=== PATIENT | female | born 1940 | race Caucasian/White ===

== ENCOUNTER 2025-03-05 11:04 | Inpatient (IN) | payer MEDICARE ==
[2025-03-05] MEDS ORDERED: dilTIAZem 25 MG/5 ML VIAL ONE (11:15)
[2025-03-05] MEDS ORDERED: Metoprolol Tartrate 5 MG (5 mL) VIAL ONE (11:19)
[2025-03-05] MEDS ORDERED: NOREPINEPHRINE 8 MG/250 ML-D5W 250 ML ONE (11:54)
[2025-03-05 12:11] LABS: Actual Bicarbonate (HCO3v) 23.6 mEq/L (22-28); Base Excess -2.8 mEq/L (-2.0 to +3.0); Calcium, Ionized (venous) 0.90 mmol/L (1.16-1.32); Chloride (VBG) 97 mmol/L (98-106); Hematocrit-VBG 36 % (36.0-52.0); Hemoglobin (Hb) 12.2 g/dL (11.7-17.4); Potassium (VBG) 5.10 mmol/L (3.70-5.30); Sodium 135 mmol/L (133-146)
[2025-03-05 12:26] LABS: INR-International Normal Ratio 3.0; PTT 56.3 sec (22.9-36.1); Prothrombin Time 31.2 sec (12.0-14.7)
[2025-03-05 12:27] LABS: D-Dimer Test 2.3 mcg/mL (0.27-0.43)
[2025-03-05 12:41] LABS: ALT (SGPT) 124 U/L (F: <34 M: <45); AST (SGOT) 246 U/L (11-34); Albumin 3.3 g/dL (3.1-4.5); Alkaline Phosphatase 95 U/L (40-110); Anion Gap 20 mmol/L (10-20); BUN (Urea Nitrogen) 62 mg/dL (8.4-25.7); Bilirubin, Total 1.1 mg/dL (0.3-1.2); Calcium 7.6 mg/dL (7.8-10.44); Carbon Dioxide 22 mmol/L (23-31); Chloride 98 mmol/L (98-107); Globulin 3.9 g/dL (2.4-3.5); Glucose 301 mg/dL (83-110); Magnesium 0.8 mg/dL (1.6-2.6); Potassium 5.1 mmol/L (3.5-5.1); Sodium 135 mmol/L (136-145)
[2025-03-05] MEDS ORDERED: Digoxin 0.5 MG/2 ML AMP ONE (12:52)
[2025-03-05 12:55] LABS: #Basophils Less than 0.03 10x3/uL (0.0-0.2); #Eosinophils Less than 0.03 10x3/uL (0.0-0.7); #Monocytes 0.72 10x3/uL (0.11-0.59); #Neutrophils 8.01 10x3/uL (1.40-6.50); %Basophils 0.2 % (0.0-1.0); %Eosinophils 0.0 % (0.0-10.0); %Lymphocytes 5.2 % (21.0-51.0); %Monocytes 7.7 % (0.0-10.0); %Neutrophils 86.0 % (42.0-75.0); Hematocrit 36.4 % (36.0-52.0); Hemoglobin 11.0 g/dL (12.0-18.0); Mean Corpuscular Hemoglobin 29.3 pg (27.0-31.0); Mean Corpuscular Volume 97.1 fL (78.0-98.0); Platelet Count 206 10x3/uL (130-400); Red Blood Cell (RBC) Count 3.75 mill/uL (4.20-6.10); White Blood Cell (WBC) Count 9.31 10x3/uL (4.8-10.8)
[2025-03-05] MEDS ORDERED: Magnesium 2 GM/50 ML BAG (IN WATER) ONE (13:09)
[2025-03-05] MEDS ORDERED: Cefepime 2 GM VIAL ONE (13:09)
[2025-03-05] MEDS ORDERED: NOREPINEPHRINE 8 MG/250 ML-D5W 250 ML IVPB PRN (13:43)
[2025-03-05] MEDS ORDERED: Dextrose 50% Abboject 50 ML SYRINGE SLOW IVP PRN (13:43)
[2025-03-05] MEDS ORDERED: Ondansetron PF 4 MG/2 ML Vial IVP PRN ×2 (13:43)
[2025-03-05] MEDS ORDERED: Acetaminophen 325 MG TAB PO PRN (13:43)
[2025-03-05] MEDS ORDERED: Glucagon 1 MG/ML KIT IM PRN (13:43)
[2025-03-05] MEDS ORDERED: Furosemide 20 MG (2 mL) VIAL ONE (14:22)
[2025-03-05] MEDS: Vancomycin 1.25 GM / NS 250 ML VIAL-2-BAG IVPB SCH (16:15)
[2025-03-05] MEDS: Furosemide 40 MG (4 mL) VIAL SLOW IVP SCH (16:15)
[2025-03-05 16:53] LABS: Bacteria/HPF 3+ HPF (None Seen); CAUTI Indications for Culture Alt mental st,lethar; Glucose, Urine (Dipstick) Normal (Negative); Leukocyte 500 Leu/uL (Negative); Protein, Urine (Dipstick) 70 mg/dL (Neg-Trace); Specific Gravity, Urine 1.013 (1.002-1.036); WBC/HPF Greater than 50 HPF (0-3)
[2025-03-05 16:57] LABS: Urine Culture Reflex Yes Yes
[2025-03-05 17:39] VITALS: BMI 23.0
[2025-03-05 17:59] LABS: Magnesium 1.5 mg/dL (1.6-2.6)
[2025-03-05] MEDS: Azithromycin 500 MG in Sodium Chloride 0.9% 250 ML 250 ML IVPB SCH (17:59)
[2025-03-05] MEDS: Magnesium 2 GM/50 ML(in water) 2 GM in Premix 1 BAG IVPB SCH (20:23)
[2025-03-05] MEDS: cefTRIAXone\\ROCEPHIN 2 GM in Sodium Chloride 0.9% 100 ML IVPB SCH (22:14)
[2025-03-06 06:01] LABS: ALT (SGPT) 151 U/L (F: <34 M: <45); AST (SGOT) 197 U/L (11-34); Albumin 2.6 g/dL (3.1-4.5); Alkaline Phosphatase 83 U/L (40-110); Anion Gap 17 mmol/L (10-20); BUN (Urea Nitrogen) 61 mg/dL (8.4-25.7); Bilirubin, Total 0.5 mg/dL (0.3-1.2); Calcium 7.6 mg/dL (7.8-10.44); Carbon Dioxide 25 mmol/L (23-31); Chloride 103 mmol/L (98-107); Globulin 3.3 g/dL (2.4-3.5); Glucose 127 mg/dL (83-110); Magnesium 1.9 mg/dL (1.6-2.6); Potassium 3.8 mmol/L (3.5-5.1); Sodium 141 mmol/L (136-145)
[2025-03-06 07:49] LABS: #Basophils 0.04 10x3/uL (0.0-0.2); #Eosinophils 0.04 10x3/uL (0.0-0.7); #Monocytes 0.79 10x3/uL (0.11-0.59); #Neutrophils 5.26 10x3/uL (1.40-6.50); %Basophils 0.6 % (0.0-1.0); %Eosinophils 0.6 % (0.0-10.0); %Lymphocytes 11.3 % (21.0-51.0); %Monocytes 11.1 % (0.0-10.0); %Neutrophils 74.1 % (42.0-75.0); Hematocrit 42.8 % (36.0-52.0); Hemoglobin 13.3 g/dL (12.0-18.0); Mean Corpuscular Hemoglobin 29.5 pg (27.0-31.0); Mean Corpuscular Volume 94.9 fL (78.0-98.0); Platelet Count 119 10x3/uL (130-400); Red Blood Cell (RBC) Count 4.51 mill/uL (4.20-6.10); White Blood Cell (WBC) Count 7.09 10x3/uL (4.8-10.8)
[2025-03-06] MEDS: Magnesium 2 GM/50 ML(in water) 2 GM in Premix 1 BAG IVPB SCH (09:22)
[2025-03-06] MEDS: Enoxaparin 60 MG (0.6 mL) SYRINGE SC SCH (09:22)
[2025-03-06] MEDS: Digoxin 0.5 MG/2 ML AMP SLOW IVP SCH (09:24)
[2025-03-06 09:32] LABS: Burr Cells MODERATE= 6-15 cells HPF (0-1); Platelet Adequacy Comment Platelets Decreased; Poikilocytosis MODERATE=16-30 cells HPF (0-5); Polychromasia SLIGHT = 2-3 cells HPF (0-2)
[2025-03-06] MEDS: Furosemide 40 MG (4 mL) VIAL SLOW IVP SCH (12:06)
[2025-03-07 06:05] LABS: #Basophils 0.05 10x3/uL (0.0-0.2); #Eosinophils 0.04 10x3/uL (0.0-0.7); #Monocytes 1.13 10x3/uL (0.11-0.59); #Neutrophils 7.69 10x3/uL (1.40-6.50); %Basophils 0.5 % (0.0-1.0); %Eosinophils 0.4 % (0.0-10.0); %Lymphocytes 7.0 % (21.0-51.0); %Monocytes 11.6 % (0.0-10.0); %Neutrophils 79.0 % (42.0-75.0); Hematocrit 35.6 % (36.0-47.0); Hemoglobin 10.7 g/dL (12.0-16.0); Mean Corpuscular Hemoglobin 29.2 pg (27.0-31.0); Mean Corpuscular Volume 97.3 fL (78.0-98.0); Platelet Count 194 10x3/uL (130-400); Red Blood Cell (RBC) Count 3.66 mill/uL (4.20-5.40); White Blood Cell (WBC) Count 9.74 10x3/uL (4.8-10.8)
[2025-03-07 06:35] LABS: ALT (SGPT) 119 U/L (Less than 34); AST (SGOT) 98 U/L (11-34); Albumin 2.6 g/dL (3.1-4.5); Alkaline Phosphatase 90 U/L (40-110); Anion Gap 14 mmol/L (10-20); BUN (Urea Nitrogen) 47 mg/dL (9.8-20.1); Bilirubin, Total 0.5 mg/dL (0.3-1.2); Calc. Creatinine Clearance 29 mL/min (70-130); Calcium 8.2 mg/dL (7.8-10.44); Carbon Dioxide 30 mmol/L (23-31); Chloride 101 mmol/L (98-107); Digoxin 1.41 ng/mL (0.8-2.0); Globulin 3.2 g/dL (2.4-3.5); Glucose 125 mg/dL (83-110); Potassium 3.6 mmol/L (3.5-5.1); Sodium 141 mmol/L (136-145)
[2025-03-07] MEDS ORDERED: Guaifenesin DM 100-10/5 ML UDCUP PO PRN (11:14)
[2025-03-07] MEDS ORDERED: Sodium Chloride 0.65% Nasal 44 ML BOT EA NARE PRN (11:16)
[2025-03-07] MEDS: Pantoprazole 40 MG DR.TAB PO SCH (15:29)
[2025-03-08 05:00] LABS: #Basophils 0.06 10x3/uL (0.0-0.2); #Eosinophils 0.06 10x3/uL (0.0-0.7); #Monocytes 1.16 10x3/uL (0.11-0.59); #Neutrophils 6.26 10x3/uL (1.40-6.50); %Basophils 0.7 % (0.0-1.0); %Eosinophils 0.7 % (0.0-10.0); %Lymphocytes 10.0 % (21.0-51.0); %Monocytes 13.2 % (0.0-10.0); %Neutrophils 71.2 % (42.0-75.0); Hematocrit 35.7 % (36.0-47.0); Hemoglobin 10.4 g/dL (12.0-16.0); Mean Corpuscular Hemoglobin 29.0 pg (27.0-31.0); Mean Corpuscular Volume 99.4 fL (78.0-98.0); Platelet Count 216 10x3/uL (130-400); Red Blood Cell (RBC) Count 3.59 mill/uL (4.20-5.40); White Blood Cell (WBC) Count 8.79 10x3/uL (4.8-10.8)
[2025-03-08 05:22] LABS: ALT (SGPT) 98 U/L (Less than 34); AST (SGOT) 76 U/L (11-34); Albumin 2.6 g/dL (3.1-4.5); Alkaline Phosphatase 88 U/L (40-110); Anion Gap 15 mmol/L (10-20); BUN (Urea Nitrogen) 34 mg/dL (9.8-20.1); Bilirubin, Total 0.5 mg/dL (0.3-1.2); Calc. Creatinine Clearance 39 mL/min (70-130); Calcium 8.6 mg/dL (7.8-10.44); Carbon Dioxide 29 mmol/L (23-31); Chloride 101 mmol/L (98-107); Globulin 3.2 g/dL (2.4-3.5); Glucose 136 mg/dL (83-110); Potassium 3.7 mmol/L (3.5-5.1); Sodium 141 mmol/L (136-145)
[2025-03-08] MEDS: Pantoprazole 40 MG DR.TAB PO SCH (09:38)
[2025-03-08] MEDS: Cyanocobalamin (Vitamin B-12) 1,000 MCG TAB PO SCH (09:38)
[2025-03-08] MEDS ORDERED: Albuterol 200 PUFF (6.7GM INHALER) INH PRN (13:57)
[2025-03-08] MEDS ORDERED: Albuterol 2.5 MG (3 mL) NEB NEB PRN (13:57)
[2025-03-08] MEDS ORDERED: hydrALAZINE 20 MG/ML VIAL SLOW IVP PRN (20:54)
[2025-03-08] MEDS ORDERED: Enoxaparin 60 MG (0.6 mL) SYRINGE SC SCH (21:00)
[2025-03-09 05:05] LABS: Hematocrit 37.3 % (36.0-47.0); Hemoglobin 10.9 g/dL (12.0-16.0); INR-International Normal Ratio 2.0; Mean Corpuscular Hemoglobin 29.3 pg (27.0-31.0); Mean Corpuscular Volume 100.3 fL (78.0-98.0); Platelet Count 235 10x3/uL (130-400); Prothrombin Time 23.1 sec (12.0-14.7); Red Blood Cell (RBC) Count 3.72 mill/uL (4.20-5.40); White Blood Cell (WBC) Count 9.05 10x3/uL (4.8-10.8)
[2025-03-09 05:06] LABS: PTT 46.0 sec (22.9-36.1)
[2025-03-09 05:16] LABS: ALT (SGPT) 78 U/L (Less than 34); AST (SGOT) 60 U/L (11-34); Albumin 2.6 g/dL (3.1-4.5); Alkaline Phosphatase 85 U/L (40-110); Anion Gap 16 mmol/L (10-20); BUN (Urea Nitrogen) 27 mg/dL (9.8-20.1); Bilirubin, Total 0.8 mg/dL (0.3-1.2); Calc. Creatinine Clearance 45 mL/min (70-130); Calcium 8.9 mg/dL (7.8-10.44); Carbon Dioxide 32 mmol/L (23-31); Chloride 99 mmol/L (98-107); Globulin 3.3 g/dL (2.4-3.5); Glucose 120 mg/dL (83-110); Potassium 3.9 mmol/L (3.5-5.1); Sodium 143 mmol/L (136-145)
[2025-03-09 06:54] LABS: Anisocytosis SLIGHT = 6-15 cells HPF (0-5); Macrocytosis SLIGHT = 6-15 cells HPF (0-5); Nucleated RBC (Manual Ct) 1 % (0); Platelet Adequacy Comment Platelets Normal; Polychromasia SLIGHT = 2-3 cells HPF (0-2); Smudge Cells 4.0 %
[2025-03-09] MEDS: Pantoprazole 40 MG DR.TAB PO SCH (08:44)
[2025-03-09] MEDS: Calcium Carbonate 600 MG + Vit D TAB PO SCH (08:44)
[2025-03-09] MEDS: Multivit, Therapeutic 1 TAB PO SCH (08:45)
[2025-03-09] MEDS: Losartan 25 MG TAB PO SCH (08:52)
[2025-03-09] MEDS: Carvedilol 6.25 MG TAB PO SCH ×2 (08:52→17:16)
[2025-03-09] MEDS: Furosemide 40 MG (4 mL) VIAL SLOW IVP SCH (11:42)
[2025-03-09] MEDS: Spironolactone 25 MG TAB PO SCH (11:43)
[2025-03-09] MEDS: Furosemide 20 MG (2 mL) VIAL SLOW IVP SCH (14:45)
[2025-03-10 05:02] LABS: INR-International Normal Ratio 2.2; Prothrombin Time 24.3 sec (12.0-14.7)
[2025-03-10 05:05] LABS: ALT (SGPT) 62 U/L (Less than 34); AST (SGOT) 45 U/L (11-34); Albumin 2.6 g/dL (3.1-4.5); Alkaline Phosphatase 83 U/L (40-110); Anion Gap 14 mmol/L (10-20); BUN (Urea Nitrogen) 32 mg/dL (9.8-20.1); Bilirubin, Total 0.6 mg/dL (0.3-1.2); Calc. Creatinine Clearance 41 mL/min (70-130); Calcium 9.3 mg/dL (7.8-10.44); Carbon Dioxide 35 mmol/L (23-31); Chloride 97 mmol/L (98-107); Globulin 3.5 g/dL (2.4-3.5); Glucose 139 mg/dL (83-110); Potassium 3.9 mmol/L (3.5-5.1); Sodium 142 mmol/L (136-145)
[2025-03-10 05:08] LABS: Hematocrit 41.4 % (36.0-47.0); Hemoglobin 12.3 g/dL (12.0-16.0); Mean Corpuscular Hemoglobin 29.1 pg (27.0-31.0); Mean Corpuscular Volume 97.9 fL (78.0-98.0); Platelet Count 230 10x3/uL (130-400); Red Blood Cell (RBC) Count 4.23 mill/uL (4.20-5.40); White Blood Cell (WBC) Count 9.51 10x3/uL (4.8-10.8)
[2025-03-10 05:13] LABS: Digoxin 1.53 ng/mL (0.8-2.0)
[2025-03-10 06:41] LABS: Anisocytosis SLIGHT = 6-15 cells HPF (0-5); Macrocytosis SLIGHT = 6-15 cells HPF (0-5); Ovalocytes SLIGHT = 2-5 cells HPF (0-1); Platelet Adequacy Comment Platelets Normal; Polychromasia SLIGHT = 2-3 cells HPF (0-2); Smudge Cells 5.9 %
[2025-03-10] MEDS: Spironolactone 25 MG TAB PO SCH (08:37)
[2025-03-11 04:49] LABS: INR-International Normal Ratio 2.6; Prothrombin Time 28.2 sec (12.0-14.7)
[2025-03-11 04:51] LABS: ALT (SGPT) 45 U/L (Less than 34); AST (SGOT) 36 U/L (11-34); Albumin 2.5 g/dL (3.1-4.5); Alkaline Phosphatase 75 U/L (40-110); Anion Gap 15 mmol/L (10-20); BUN (Urea Nitrogen) 36 mg/dL (9.8-20.1); Bilirubin, Total 0.5 mg/dL (0.3-1.2); Calc. Creatinine Clearance 35 mL/min (70-130); Calcium 8.7 mg/dL (7.8-10.44); Carbon Dioxide 34 mmol/L (23-31); Chloride 96 mmol/L (98-107); Globulin 3.2 g/dL (2.4-3.5); Glucose 114 mg/dL (83-110); Magnesium 1.5 mg/dL (1.6-2.6); Potassium 3.8 mmol/L (3.5-5.1); Sodium 141 mmol/L (136-145)
[2025-03-11 05:07] LABS: Hematocrit 38.0 % (36.0-47.0); Hemoglobin 11.4 g/dL (12.0-16.0); Mean Corpuscular Hemoglobin 29.3 pg (27.0-31.0); Mean Corpuscular Volume 97.7 fL (78.0-98.0); Platelet Count 201 10x3/uL (130-400); Red Blood Cell (RBC) Count 3.89 mill/uL (4.20-5.40); White Blood Cell (WBC) Count 9.36 10x3/uL (4.8-10.8)
[2025-03-11] MEDS: Magnesium 2 GM/50 ML(in water) 2 GM in Premix 1 BAG IVPB SCH (05:08)
[2025-03-11 06:37] LABS: Anisocytosis SLIGHT = 6-15 cells HPF (0-5); Macrocytosis SLIGHT = 6-15 cells HPF (0-5); Ovalocytes SLIGHT = 2-5 cells HPF (0-1); Platelet Adequacy Comment Platelets Normal; Poikilocytosis SLIGHT = 6-15 cells HPF (0-5); Polychromasia SLIGHT = 2-3 cells HPF (0-2); Smudge Cells 12.6 %
[2025-03-11] MEDS ORDERED: HYDROcodone/Acetaminophen 5/325 mg Tablet PO PRN (10:50)
[2025-03-12 06:06] LABS: INR-International Normal Ratio 2.6; Prothrombin Time 28.1 sec (12.0-14.7)
[2025-03-12 06:09] LABS: Hematocrit 38.5 % (36.0-47.0); Hemoglobin 11.3 g/dL (12.0-16.0); Mean Corpuscular Hemoglobin 29.5 pg (27.0-31.0); Mean Corpuscular Volume 100.5 fL (78.0-98.0); Platelet Count 212 10x3/uL (130-400); Red Blood Cell (RBC) Count 3.83 mill/uL (4.20-5.40); White Blood Cell (WBC) Count 8.83 10x3/uL (4.8-10.8)
[2025-03-12 06:25] LABS: ALT (SGPT) 38 U/L (Less than 34); AST (SGOT) 41 U/L (11-34); Albumin 2.5 g/dL (3.1-4.5); Alkaline Phosphatase 74 U/L (40-110); Anion Gap 14 mmol/L (10-20); BUN (Urea Nitrogen) 32 mg/dL (9.8-20.1); Bilirubin, Total 0.7 mg/dL (0.3-1.2); Calc. Creatinine Clearance 36 mL/min (70-130); Calcium 8.8 mg/dL (7.8-10.44); Carbon Dioxide 36 mmol/L (23-31); Chloride 96 mmol/L (98-107); Globulin 3.1 g/dL (2.4-3.5); Glucose 120 mg/dL (83-110); Potassium 4.2 mmol/L (3.5-5.1); Sodium 142 mmol/L (136-145)
[2025-03-12 07:18] LABS: Anisocytosis SLIGHT = 6-15 cells HPF (0-5); Macrocytosis SLIGHT = 6-15 cells HPF (0-5); Platelet Adequacy Comment Platelets Normal; Polychromasia SLIGHT = 2-3 cells HPF (0-2); Smudge Cells 5.0 %
[2025-03-12] MEDS: Furosemide 40 MG TAB PO SCH (09:33)
[2025-03-12] MEDS ORDERED: Furosemide 40 MG (4 mL) VIAL SLOW IVP SCH (12:15)
[2025-03-12 20:52] VITALS: BMI 23.8
[2025-03-13 05:31] LABS: Hematocrit 37.2 % (36.0-47.0); Hemoglobin 10.9 g/dL (12.0-16.0); Mean Corpuscular Hemoglobin 29.2 pg (27.0-31.0); Mean Corpuscular Volume 99.7 fL (78.0-98.0); Platelet Count 174 10x3/uL (130-400); Red Blood Cell (RBC) Count 3.73 mill/uL (4.20-5.40); White Blood Cell (WBC) Count 9.52 10x3/uL (4.8-10.8)
[2025-03-13 05:33] LABS: INR-International Normal Ratio 2.8; Prothrombin Time 30.0 sec (12.0-14.7)
[2025-03-13 05:34] LABS: ALT (SGPT) 33 U/L (Less than 34); AST (SGOT) 40 U/L (11-34); Albumin 2.4 g/dL (3.1-4.5); Alkaline Phosphatase 70 U/L (40-110); Anion Gap 11 mmol/L (10-20); BUN (Urea Nitrogen) 34 mg/dL (9.8-20.1); Bilirubin, Total 0.6 mg/dL (0.3-1.2); Calc. Creatinine Clearance 32 mL/min (70-130); Calcium 8.5 mg/dL (7.8-10.44); Carbon Dioxide 36 mmol/L (23-31); Chloride 96 mmol/L (98-107); Globulin 2.9 g/dL (2.4-3.5); Glucose 123 mg/dL (83-110); Potassium 4.3 mmol/L (3.5-5.1); Sodium 139 mmol/L (136-145)
[2025-03-13 06:28] LABS: Anisocytosis SLIGHT = 6-15 cells HPF (0-5); Macrocytosis SLIGHT = 6-15 cells HPF (0-5); Platelet Adequacy Comment Platelets Normal; Polychromasia SLIGHT = 2-3 cells HPF (0-2); Smudge Cells 9.0 %
[2025-03-13] MEDS: Digoxin 0.125 MG TAB PO SCH (10:39)
[2025-03-13] MEDS ORDERED: Carvedilol 6.25 MG TAB PO SCH (16:23)
[2025-03-13] MEDS: Carvedilol 6.25 MG TAB PO SCH (18:21)
[2025-03-14 05:01] LABS: #Basophils 0.09 10x3/uL (0.0-0.2); #Eosinophils 0.24 10x3/uL (0.0-0.7); #Monocytes 1.30 10x3/uL (0.11-0.59); #Neutrophils 6.04 10x3/uL (1.40-6.50); %Basophils 0.9 % (0.0-1.0); %Eosinophils 2.5 % (0.0-10.0); %Lymphocytes 15.4 % (21.0-51.0); %Monocytes 13.6 % (0.0-10.0); %Neutrophils 63.1 % (42.0-75.0); Hematocrit 36.1 % (36.0-47.0); Hemoglobin 10.7 g/dL (12.0-16.0); Mean Corpuscular Hemoglobin 29.2 pg (27.0-31.0); Mean Corpuscular Volume 98.4 fL (78.0-98.0); Platelet Count 158 10x3/uL (130-400); Red Blood Cell (RBC) Count 3.67 mill/uL (4.20-5.40); White Blood Cell (WBC) Count 9.58 10x3/uL (4.8-10.8)
[2025-03-14 05:28] LABS: INR-International Normal Ratio 2.9; Prothrombin Time 30.1 sec (12.0-14.7)
[2025-03-14 05:58] LABS: ALT (SGPT) 29 U/L (Less than 34); AST (SGOT) 40 U/L (11-34); Albumin 2.5 g/dL (3.1-4.5); Alkaline Phosphatase 69 U/L (40-110); Anion Gap 14 mmol/L (10-20); BUN (Urea Nitrogen) 33 mg/dL (9.8-20.1); Bilirubin, Total 0.6 mg/dL (0.3-1.2); Calc. Creatinine Clearance 33 mL/min (70-130); Calcium 8.4 mg/dL (7.8-10.44); Carbon Dioxide 33 mmol/L (23-31); Chloride 97 mmol/L (98-107); Globulin 2.9 g/dL (2.4-3.5); Glucose 137 mg/dL (83-110); Potassium 4.3 mmol/L (3.5-5.1); Sodium 140 mmol/L (136-145)
[2025-03-14] MEDS: Carvedilol 6.25 MG TAB PO SCH (09:08)
[2025-03-14 09:54] VITALS: TEMP 97.6
[2025-03-14 13:08] VITALS: BP 125/56
[2025-03-14] MEDS ORDERED: Carvedilol 3.125 MG TAB PO SCH (17:00)
== END 2025-03-14 13:30 | DRG 280 ==
LOC: ERS 11:04 → SUATTDRO 11:04 → ERHOLD 13:36 → EDSEX 13:36 → IMCU/EMU 16:23 → 2NO 03-08 14:11
PROVIDERS: ADMIT Family Medicine; ATTEND Family Medicine
PROC: 3E033XZ Introduction of Vasopressor into Peripheral Vein, Percutaneous Approach (ICD-10-PCS; principal; 2025-03-05)
PROC: 3E03329 Introduction of Other Anti-infective into Peripheral Vein, Percutaneous Approach (ICD-10-PCS; 2025-03-05)
PROC: 5A09457 Assistance with Respiratory Ventilation, 24-96 Consecutive Hours, Continuous Positive Airway Pressure (ICD-10-PCS; 2025-03-05)
DX: I13.0 Hypertensive heart and chronic kidney disease with heart failure and stage 1 through stage 4 chronic kidney disease, or unspecified chronic kidney disease (principal); I50.33 Acute on chronic diastolic (congestive) heart failure; I21.A1 Myocardial infarction type 2; J18.9 Pneumonia, unspecified organism; R57.0 Cardiogenic shock; Z66 Do not resuscitate; J96.21 Acute and chronic respiratory failure with hypoxia; I48.11 Longstanding persistent atrial fibrillation; J44.0 Chronic obstructive pulmonary disease with (acute) lower respiratory infection; N17.9 Acute kidney failure, unspecified; N18.30 Chronic kidney disease, stage 3 unspecified; M19.90 Unspecified osteoarthritis, unspecified site; F41.9 Anxiety disorder, unspecified; F32.A Depression, unspecified; I27.20 Pulmonary hypertension, unspecified; E11.65 Type 2 diabetes mellitus with hyperglycemia; K21.9 Gastro-esophageal reflux disease without esophagitis; Z99.3 Dependence on wheelchair; E11.22 Type 2 diabetes mellitus with diabetic chronic kidney disease; E83.42 Hypomagnesemia; Z99.81 Dependence on supplemental oxygen; Z88.8 Allergy status to other drugs, medicaments and biological substances; Z88.1 Allergy status to other antibiotic agents; Z88.2 Allergy status to sulfonamides; Z98.890 Other specified postprocedural states; Z79.01 Long term (current) use of anticoagulants; Z88.5 Allergy status to narcotic agent; Z93.3 Colostomy status; Z88.6 Allergy status to analgesic agent; I08.1 Rheumatic disorders of both mitral and tricuspid valves; R79.89 Other specified abnormal findings of blood chemistry; Z95.2 Presence of prosthetic heart valve; R00.1 Bradycardia, unspecified
CPT/HCPCS: 36415; 36416; 71045; 80053; 80162; 82805; 83036; 83605; 83735; 83880; 84100; 84443; 84484; 85025; 85379; 85610; 85730; 87040; 87077; 87086; 87186; 87633; 87798; 93005; 93306; 94640; 94660; 96365; 96366; 96367; 96368; 96375; 97139; 99292; J0456; J0692; J0696; J1160; J1650; J1815; J1940; J3373; J3475; J7050; J7620